=== PATIENT | female | born 1995 | race Caucasian/White ===

== ENCOUNTER 2016-08-25 09:41 | Outpatient (CLI) | payer OTHER ==
[2016-08-25 10:06] LABS: BASOPHILS % 0.7 (0.0-1.5); EOSINOPHILS % 2.8 % (0.0-6.8); MEAN CORPUSCULAR HEMOGLOBIN 28.9 pg (28.0-34.0); MEAN CORPUSCULAR VOLUME 82.2 fl (80.0-100.0); MONOCYTES % 4.6 % (0.0-11.0); NEUTROPHILS # 7.2 # k/uL (1.4-7.7)
[2016-08-25 10:31] LABS: eGFR (African) > 60; eGFR (Non-African) > 60
== END 2016-08-25 09:42 ==
LOC: LAB 09:41
PROVIDERS: ATTEND Physician Assistant
DX: R10.11 Right upper quadrant pain (principal)
CPT/HCPCS: 36415; 80053; 85025

== ENCOUNTER 2016-08-27 08:01 | Outpatient (CLI) | payer OTHER ==
--- NOTE | 2016-08-27 20:14 | Diagnostic Imaging Report ---
KEVAN AYALA~ [facility] [address] [facility]ly [facility], [facility] [place], [place]. [address] ~ ~ ~ ~ Report Submission Date: August 27, 2016 12:58:55 PM CDT Patient ~ Study Name: ERWIN FIGUEROA ~ Date: August 27, 2016 8:20:19 AM CDT ~ Modality Type: US Gender: F ~ Description: US ABD LIMITED : 89 ~ Institution: [facility] Physician: KEVAN AYALA ~ ~ ~ ~ Ultrasound of the upper abdomen Clinical history: ~Right upper quadrant abdominal pain. Technique: ~Real time sonography of the upper abdomen is performed in transverse and longitudinal views. Findings: ~The gallbladder is normally distended. ~There is no evident gallstone or gallbladder wall thickening and no pericholecystic fluid. ~The common bile duct measures less than 3 mm in diameter. ~There is no intrahepatic ductal dilatation. ~Visualized pancreas and right kidney are unremarkable. ~ There is coarsening of the hepatic echotexture with poor through transmission consistent with fatty infiltration of the liver. Impression: ~ 1. ~Fatty infiltration of the liver. ~ Electronically signed on August 27, 2016 12:58:55 PM CDT by: Yaw PINEDA
== END 2016-08-27 08:02 ==
LOC: RAD 08:01
PROVIDERS: ATTEND Physician Assistant
DX: R10.11 Right upper quadrant pain (principal)
CPT/HCPCS: 76705

== ENCOUNTER 2016-09-15 11:53 | Outpatient (CLI) | payer OTHER | END 2016-09-15 11:54 | LOC: LAB 11:53 | PROVIDERS: ATTEND Physician Assistant | DX: E66.9 Obesity, unspecified (principal); K76.0 Fatty (change of) liver, not elsewhere classified | CPT/HCPCS: 36415; 80061; 82670; 83001; 83002; 83036; 84146 ==